=== PATIENT | male | born 1980 | race Caucasian/White ===

== ENCOUNTER 2016-12-24 09:48 | Emergency (ER) | payer OTHER ==
[2016-12-24 10:07] VITALS: BP 125/75
--- NOTE | 2016-12-24 10:36 | UC ---
[facility] Dental HPI - History of Current Complaint Chief Complaint: UCDentalProblem Stated Complaint: DENTAL COMPLAINT Time Seen by Provider: 12/24/16 10:21 Hx Obtained From: Patient Onset/Duration: Sudden Onset - left lower molar pain, Lasting Days - 6, Worse Since - 12/21 had partial tooth extraction. Given clindamycin and hydrocodone. Unable to keep the hydrocodone down with clinamycin Severity: Moderate Aggravating: Chewing Alleviating: Nothing Related History: Previous Dental Care on Same Tooth - Allergies/Home Medications Allergies/Adverse Reactions: Allergies Allergy/AdvReac Type Severity Reaction Status Date / Time Valproic Acid [From Depakote] Allergy Severe balance Verified 08/14/13 11:43 Erythromycin [From E-Mycin] Allergy Intermediate Rash Verified 08/14/13 11:43 Azithromycin Allergy Hives Verified 12/24/16 10:08 Efavirenz [From Atripla] Allergy Altered Verified 12/24/16 10:18 Mental Status Emtricitabine [From Atripla] Allergy Altered Verified 12/24/16 10:18 Mental Status Tenofovir Disoproxil Fumarate Allergy Altered Verified 12/24/16 10:18 [From Atripla] Mental Status CHANTIX Allergy Altered Uncoded 12/24/16 10:09 Mental Status Home Medications: Home Medications Emtricitabine-Tenofovir Alafen [Descovy 200-25 mg] 1 tab PO DAILY 12/24/16 [ History Confirmed 12/24/16] Ibuprofen TAB* [Motrin TAB* 800 MG] 800 mg PO TID PRN 12/24/16 [History Confirmed 12/24/16] PMH/Surg Hx/FS Hx/Imm Hx Neurological History Of: Reports: Migraine Other History Of: HIV - Surgical History Surgical History: Yes Surgery Procedure, Year, and Place: DENTAL; GROIN ORDERED BY DR. QUINN - Family History Known Family History: Positive: Cardiac Disease, Hypertension, Diabetes - Social History Occupation: Employed Full-time Lives: Alone - with roommate Alcohol Use: Rare Substance Use Type: None, Marijuana Smoking Status (MU): Heavy Every Day Tobacco Smoker Type: Cigarettes Amount Used/How Often: 1 PK DAILY Have You Smoked in the Last Year: Yes Cessation Counseling: Patient Advised to Stop Review of Systems Constitutional: Fever, Chills ENT: Dental Pain Gastrointestinal: Vomiting All Other Systems Reviewed And Are Negative: Yes Physical Exam Triage Information Reviewed: Yes Appearance: No Pain Distress, Well-Nourished, Ill-Appearing Vital Signs: Initial Vital Signs Temp 99.4 F 12/24/16 09:55 Pulse 76 12/24/16 09:55 Resp 18 12/24/16 09:55 BP 125/75 12/24/16 09:55 Vital Signs Reviewed: Yes Eyes: Positive: Conjunctiva Clear ENT: Positive: TMs normal Dental: Positive: Dental Fracture @ - #18 with swelling of gums with roots still in. Neck: Positive: Tenderness @ - Left upper anterior cervical lymph nodes. Respiratory: Positive: Wheezing - end inspiratory Cardiovascular Exam: Normal Musculoskeletal Exam: Normal Neurological Exam: Normal Psychological Exam: Normal Skin Exam: Normal Dental Complaint Course/Dx - Differential Dx/Diagnosis Differential Diagnosis/Dx: Dental Abscess, Dental Caries, Fractured Tooth Provider Diagnoses: Dental abscess. Dental fracture. Vomiting Discharge - Discharge Plan Condition: Stable Disposition: HOME Prescriptions: Vicodin 7.5mg 1 tab PO QID PRN #15 MDD 4 PRN Reason: Pain - Moderate To Severe Amoxicillin/Clavulanate TAB* [Augmentin TAB 875*] 875 mg PO BID #20 tab Hydrocodone-Acetaminophen [Lorcet Plus 7.5-325 mg] 1 tab PO QID PRN #15 tab MDD 4 PRN Reason: Pain - Moderate To Severe Ondansetron ODT TAB* [Zofran 4 MG Odt TAB*] 4 mg PO Q6H PRN #14 tab.odt PRN Reason: Nausea/Vomiting Patient Education Materials: Dental Abscess (ED), Amoxicillin/Clavulanate Potassium (By mouth), Hydrocodone/Acetaminophen (By mouth), Ondansetron (By mouth)
[2016-12-24] MEDS ORDERED: Ondansetron ODT TAB* 4 MG PO ONE (10:46)
[2016-12-24] MEDS ORDERED: Ondansetron ODT TAB* 4 MG ONE (10:57)
== END 2016-12-24 11:08 | disposition home or self-care (01) ==
LOC: UCCORT 09:48
DX: K04.7 Periapical abscess without sinus (principal); R11.10 Vomiting, unspecified; K08.409 Partial loss of teeth, unspecified cause, unspecified class; Z88.1 Allergy status to other antibiotic agents; Z88.8 Allergy status to other drugs, medicaments and biological substances; F17.210 Nicotine dependence, cigarettes, uncomplicated
CPT/HCPCS: 99212; G0463

== ENCOUNTER 2017-06-01 07:57 | Emergency (ER) | payer OTHER ==
[2017-06-01 08:23] VITALS: BP 123/76
--- NOTE | 2017-06-01 08:40 | UC ---
Abdominal Pain Male HPI - HPI Summary HPI Summary: 37 yo male with 3-10 episodes of diarrhea per day since mid December Onset after taking Augmentin no f/c no wt loss (+) tenesmus HIV (+) no hx gc or chlamydia - History of Current Complaint Chief Complaint: UCGI Stated Complaint: STOMACH ISSUES/DIARRHEA Time Seen by Provider: 06/01/17 08:17 Hx Obtained From: Patient Onset/Duration: Sudden Onset, Lasting Weeks Timing: Constant Severity Initially: Moderate Severity Currently: Moderate Pain Intensity: 3 Pain Scale Used: 0-10 Numeric Location: Diffuse, Other - rectal Radiates: No Character: Cramping Alleviating Factor(s): Nothing Associated Signs And Symptoms: Positive: Diarrhea - Allergies/Home Medications Allergies/Adverse Reactions: Allergies Allergy/AdvReac Type Severity Reaction Status Date / Time Valproic Acid [From Depakote] Allergy Severe balance Verified 06/01/17 08:07 Erythromycin [From E-Mycin] Allergy Intermediate Rash Verified 06/01/17 08:07 Azithromycin Allergy Hives Verified 06/01/17 08:07 Efavirenz [From Atripla] Allergy Altered Verified 06/01/17 08:07 Mental Status Emtricitabine [From Atripla] Allergy Altered Verified 06/01/17 08:07 Mental Status Tenofovir Disoproxil Fumarate Allergy Altered Verified 06/01/17 08:07 [From Atripla] Mental Status CHANTIX Allergy Altered Uncoded 06/01/17 08:07 Mental Status PMH/Surg Hx/FS Hx/Imm Hx Other History Of: HIV - Surgical History Surgical History: Yes Surgery Procedure, Year, and Place: DENTAL; GROIN ORDERED BY DR. QUINN - Family History Known Family History: Positive: Cardiac Disease, Hypertension, Diabetes - Social History Alcohol Use: Rare Substance Use Type: Marijuana Substance Use Comment - Amount & Last Used: 05/31/17 Smoking Status (MU): Heavy Every Day Tobacco Smoker Type: Cigarettes Amount Used/How Often: <1 ppd Have You Smoked in the Last Year: Yes - Immunization History Most Recent Influenza Vaccination: 2016 Review of Systems Constitutional: Negative Skin: Negative Eyes: Negative ENT: Negative Respiratory: Negative Cardiovascular: Negative Gastrointestinal: Diarrhea Genitourinary: Negative Motor: Negative Neurovascular: Negative Musculoskeletal: Negative Neurological: Negative Psychological: Negative All Other Systems Reviewed And Are Negative: Yes Physical Exam Triage Information Reviewed: Yes Appearance: Well-Appearing, No Pain Distress, Well-Nourished Vital Signs: Initial Vital Signs Temp 98.6 F 06/01/17 08:09 Pulse 97 06/01/17 08:09 Resp 18 06/01/17 08:09 BP 123/76 06/01/17 08:09 Pulse Ox 100 06/01/17 08:09 Vital Signs Reviewed: Yes Eyes: Positive: Conjunctiva Clear ENT: Positive: Hearing grossly normal. Negative: Nasal congestion, Nasal drainage, Trismus, Muffled/hoarse voice Dental: Negative: Gross Decay/Caries @, Dental Fracture @ Neck exam: Normal Neck: Positive: Supple, Nontender Respiratory: Positive: Lungs clear, Normal breath sounds, No respiratory distress Cardiovascular: Positive: RRR, No Murmur Abdomen Description: Positive: Nontender, No Organomegaly, Soft, Other: - no perirectal lesions noted Musculoskeletal: Positive: ROM Intact, No Edema Neurological: Positive: Alert Psychological Exam: Normal Skin Exam: Normal Abd Pain Male Course/Dx - Differential Dx/Clinical Impression Provider Diagnoses: Chronic diarrhea. HIV + Discharge - Discharge Plan Condition: Stable Disposition: HOME Patient Education Materials: Chronic Diarrhea (ED) Forms: *Work Release Referrals: Rolando ARNOLD,Tc Albright [Medical Doctor] - As Soon As Possible Ihsan Laura NP [Primary Care Provider] - Additional Instructions: tests pending see Dr. Marshall first available appt
== END 2017-06-01 09:02 | disposition home or self-care (01) ==
LOC: UCCORT 07:57
DX: K52.9 Noninfective gastroenteritis and colitis, unspecified (principal); B20 Human immunodeficiency virus [HIV] disease; Z72.0 Tobacco use
CPT/HCPCS: 87070; 87205; 99212; G0463

== ENCOUNTER 2017-06-05 08:08 | Emergency (ER) | payer OTHER ==
[2017-06-05 08:47] VITALS: BP 122/79
--- NOTE | 2017-06-05 09:00 | UC ---
Skin Complaint HPI - HPI Summary HPI Summary: boil rectal area x 3 days + swollen, very painful , mild drainage - History of Current Complaint Chief Complaint: UCSkin Time Seen by Provider: 06/05/17 08:49 Stated Complaint: RE-CHECK SKIN COMPLAINT Hx Obtained From: Patient Onset/Duration: Gradual Onset, Lasting Days - 3, Still Present Timing: Constant Onset Severity: Moderate Current Severity: Moderate Location: Other - rectal area Character: Swelling, Pain, Redness, Raised, Painful Aggravating: Touch Alleviating: Heat Associated Signs & Symptoms: Positive: Tenderness. Negative: Nausea, Vomiting - Allergy/Home Medications Allergies/Adverse Reactions: Allergies Allergy/AdvReac Type Severity Reaction Status Date / Time Valproic Acid [From Depakote] Allergy Severe balance Verified 06/05/17 08:40 Erythromycin [From E-Mycin] Allergy Intermediate Rash Verified 06/05/17 08:40 Azithromycin Allergy Hives Verified 06/05/17 08:40 Efavirenz [From Atripla] Allergy Altered Verified 06/05/17 08:40 Mental Status Emtricitabine [From Atripla] Allergy Altered Verified 06/05/17 08:40 Mental Status Tenofovir Disoproxil Fumarate Allergy Altered Verified 06/05/17 08:40 [From Atripla] Mental Status CHANTIX Allergy Altered Uncoded 06/05/17 08:40 Mental Status Review of Systems Constitutional: Negative Eyes: Negative ENT: Negative Respiratory: Negative Cardiovascular: Negative All Other Systems Reviewed And Are Negative: Yes PMH/Surg Hx/FS Hx/Imm Hx Other History Of: HIV - Surgical History Surgical History: Yes Surgery Procedure, Year, and Place: DENTAL; GROIN ORDERED BY DR. QUINN - Family History Known Family History: Positive: Cardiac Disease, Hypertension, Diabetes - Social History Alcohol Use: Rare Substance Use Type: Marijuana Substance Use Comment - Amount & Last Used: 05/31/17 Smoking Status (MU): Heavy Every Day Tobacco Smoker Type: Cigarettes Amount Used/How Often: <1 ppd Have You Smoked in the Last Year: Yes - Immunization History Most Recent Influenza Vaccination: 2016 Physical Exam Triage Information Reviewed: Yes Appearance: Well-Appearing, Well-Nourished, Pain Distress Vital Signs: Initial Vital Signs Temp 98 F 06/05/17 08:40 Pulse 117 06/05/17 08:40 Resp 18 06/05/17 08:40 BP 122/79 06/05/17 08:40 Pulse Ox 100 06/05/17 08:40 Vital Signs Reviewed: Yes Eyes: Positive: Conjunctiva Clear ENT: Positive: Normal ENT inspection, Hearing grossly normal, Pharynx normal Neck exam: Normal Neck: Positive: Supple, Nontender Respiratory: Positive: Chest non-tender, Lungs clear, Normal breath sounds Cardiovascular: Positive: RRR, No Murmur, Pulses Normal Abdominal Exam: Normal Abdomen Description: Positive: Nontender, Soft, Other: - rectal area right side : + abscess 1 cm , swollen, erythema , sever tenderness. Negative: CVA Tenderness (R), CVA Tenderness (L) Bowel Sounds: Positive: Present Skin Exam: Normal Course/Dx - Diagnoses Provider Diagnoses: rectal abscess Discharge - Discharge Plan Condition: Stable Disposition: HOME Prescriptions: Cephalexin CAP* [Keflex CAP*] 500 mg PO TID #30 cap Hydrocodone-Acetaminophen [Hydrocodone/Acetaminophen 5-325 mg] 1 tab PO Q6H #20 tab MDD 4 Patient Education Materials: Rectal Abscess (ED) Referrals: Ihsan Laura NP [Primary Care Provider] - 5 Days
== END 2017-06-05 09:24 | disposition home or self-care (01) ==
LOC: UCCORT 08:08
DX: K61.1 Rectal abscess (principal); F17.210 Nicotine dependence, cigarettes, uncomplicated; B20 Human immunodeficiency virus [HIV] disease; Z88.1 Allergy status to other antibiotic agents; Z88.8 Allergy status to other drugs, medicaments and biological substances
CPT/HCPCS: 99212; G0463